=== PATIENT | female | born 1950 | race Hispanic/Latino ===

== ENCOUNTER → 2017-08-10 | Day surgery (SDC) | payer MEDICARE, BC ==
[2013-10-28 08:22] VITALS: BMI 31.6
[~2017-08-10] MED LIST: Iodixanol 320 MG/ML 200 ML BOTTLE IV ONE; Lidocaine 2% Inj (20ml) ONE; Midazolam 2 MG/2 ML VIAL ONE; Nitroglycerin 50mg in D5W 0 MG/0 ML BOTTLE IV ONE; Potassium Chloride 20 mEq ER Tab PO ONE; Sodium Chloride 0.9% 1,000 ML IV SCH
--- NOTE | 2017-08-10 08:28 | HP ---
REASON FOR ADMISSION: Chest pain, recurrent; history of coronary artery disease; history of CABG, and history of PTCA. BRIEF CLINICAL HISTORY: This is a 67-year-old female with a past medical history significant for type 2 diabetes, PTCA, CABG, post CABG PTCA x2, left main, recently seen in office on 07/31/2017. CHIEF COMPLAINT: Chest pain with minimal activity underneath the breast and goes into the left arm and shoulder, so the patient is scheduled for cardiac catheterization. PAST MEDICAL HISTORY: Significant for coronary artery disease, history of coronary artery bypass surgery on 05/30/2012, two vessels CABG, SHAH to LAD and SVG to circumflex. Over a period of time, the patient had stent to the left main and sent to the circumflex. Last cardiac catheterization on 10/16/2014 that shows mid LAD of occluded, but patent SHAH to LAD, occluded SVG to the circumflex occluded, but patent stent in the circumflex, patent stent in RCA. Medical treatment was recommended. Last catheterization dated to 10/16/2014. Previous cardiac workup as follows: Patient had a stress test on 07/14/2017 that shows normal ejection fraction of 50-60%; echo, ejection fraction 65%, trace MR, trace TR, mild to moderate TR. RV systolic pressure 55%. Most recent catheterization on 10/16/2014 shows patent SHAH occluded, SVG to circumflex, patent stent in circumflex, patent RCA. CURRENT MEDICATION: The patient is taking hydrochlorothiazide, metformin, Januvia, simvastatin, Ranexa, Singulair, Gabapentin, aspirin, amiodarone, and acetaminophen. REVIEW OF SYSTEMS: As per HPI. ALLERGIES: ALLERGY TO NIACIN. PHYSICAL EXAMINATION: VITAL SIGNS: As follows: Height of the patient is 5 feet , weight of the patient 176 pounds, body mass index is 31 kg/m2. Blood pressure 145/75. HEENT: PERRLA. Extraocular muscles intact. NECK: Supple. No carotid bruits or thyromegaly. CHEST: Clear to auscultation. HEART: S1 and S2 and regular. ABDOMEN: Soft. EXTREMITIES: Clubbing and cyanosis are negative. LABORATORY DATA: Blood workup pending. IMPRESSION: Unstable angina, diabetes, hypertension, hyperlipidemia, status post stimulator in the back, history of coronary artery bypass surgery in 2011, history of multiple stents in the past, unstable angina. RECOMMENDATIONS: We will load with Plavix and aspirin. Further recommendation after the cardiac catheterization. We will follow with you. Thank you for providing us the opportunity in taking care of the patient, Elaine Segovia. Fozia Sykes MD
[2017-08-10 09:05] LABS: BASO # 0.02 K/mm3 (0.0-2.0); BASO % 0.3 % (0.0-3.0); EOS # 0.1 (0.0-0.7); EOS % 1.8 % (1.5-5.0); GRAN # 5.12 (1.4-6.5); GRAN % 67.1 % (50.0-68.0); HEMATOCRIT 37.2 % (36.0-48.0); LYMPH # 1.7 (1.2-3.4); LYMPH % 22.8 % (22.0-35.0); MEAN CELL VOLUME 89.9 fl (80.0-105.0); MEAN CORPUSCULAR HEMOGLOBIN 30.4 pg (25.0-35.0); MEAN CORPUSCULAR HGB CONC 33.9 g/dl (31.0-37.0); MEAN PLATELET VOLUME 11.2 fl (7.0-11.0); MONO # 0.6 (0.1-0.6); RED CELL DISTRIBUTION WIDTH 13.4 % (11.5-14.5); WHITE BLOOD COUNT 7.6 10^3/ul (4.5-11.0)
[2017-08-10 09:09] LABS: BLOOD UREA NITROGEN 8 mg/dL (7-21); CALCIUM 9.7 mg/dL (8.4-10.5); CARBON DIOXIDE 33 mmol/L (21-33); CHLORIDE 96 mmol/L (98-107); CHOLESTEROL 178 mg/dL (130-200); GFR AFRICAN-AMERICAN > 60; GLUCOSE,RANDOM 153 mg/dL (70-110); POTASSIUM 3.5 mmol/L (3.6-5.0); SODIUM 138 mmol/L (132-148)
[2017-08-10 09:20] VITALS: RESP 18; TEMP 98
[2017-08-10 09:46] LABS: INR 1.01 (0.93-1.08); PARTIAL THROMBOPLASTIN TIME 29.5 Seconds (23.7-30.8)
[2017-08-10 12:46] VITALS: O2SAT 97
[2017-08-10 18:06] VITALS: BP 156/88; PULSE 60
--- NOTE | 2017-08-10 21:56 | CARD ---
APPROVED REPORT Procedure(s) performed: Left Heart Catheterization SHAH Angiogram HISTORY The patient is a 67 year-old female with a history of : previous WA (> 7 days), previous CHF, diabetes mellitus with oral treatment , chronic lung disease, previous diagnostic cath, previous PCI (The PCI date was 03/13/2014), hypertension , previous CABG (The CABG date was 05/30/2012), dyslipidemia , Multiple office visits with chest oain, though stress test was normal. INDICATION The indication(s) include : unstable angina . CASE TECHNIQUE The patient was brought electively to the Cardiac Catheterization Laboratory in a fasting state and was prepped and draped in a sterile manner. The right femoral groin was infiltrated with 2% Lidocaine subcutaneous anesthesia. A 6 Fr x 11 cm Miranda sheath was inserted into the right femoral artery without difficulty. Coronary angiography was performed using coronary diagnostic catheters. The left coronary system was accessed and visualized with a Diagnostic ,6 Fr JL 4 catheter. The right coronary system was accessed and visualized with a Diagnostic ,6 Fr JR 4 catheter. The left ventricle was accessed and visualized with a 6 Fr Pigtail catheter. Left ventricular/Aortic Valve gradient assessed on pullback. Left ventriculogram was performed in PITTMAN projection. Closure device was deployed with a 6 Fr Angio-Seal without any complications. The patient tolerated the procedure well and there were no complications associated with the procedure. Vessel Analysis The patient's coronary anatomy is right dominant. The left main coronary artery is a large size vessel with diffuse calcification noted throughout this vessel and without significant stenosis. with patent stent The left main bifurcates to the left anterior descending and circumflex. The left anterior descending artery is a medium size vessel with diffuse calcification noted throughout this vessel and with significant stenosis. There is a 100% stenosis in the mid segment. The first diagonal branch is a small size vessel with diffuse calcification noted throughout this vessel and without significant stenosis. The circumflex artery is a large size vessel with diffuse calcification noted throughout this vessel and without significant stenosis. patent stent in proximal segment The first obtuse marginal branch is a large size vessel with diffuse calcification noted throughout this vessel and without significant stenosis. The right coronary artery is a large size vessel with diffuse calcification noted throughout this vessel and without significant stenosis. patent stent in proximal segment There is a 40-50% stenosis in the mid segment. The right posterior descending artery is a large size vessel with diffuse calcification noted throughout this vessel and without significant stenosis. The right posterolateral branch is a medium size vessel with diffuse calcification noted throughout this vessel and without significant stenosis. The left internal mammary artery to the mid left anterior descending artery segment . The saphenous vein graft to the mid circumflex artery segment was occluded on previous cath,not attemted to canulate this time. . Left Ventricle The left ventricle is normal in size with normal contractility. There was no cardiomyopathy. The left ventricular ejection fraction is estimated to be 55-60%. The left ventricular end diastolic pressure is 14 mmHg. There was no gradient across the aortic valve upon pullback. Conclusion Patent SHAH to LAD Patent Stents in Left main,circumflex, and RCA. preserved Lv Fx. EF-55-60%, EDP-14 mmof Hg. Recommendations Aggressive Medical TherapyCardiac Risk Reduction Program Weight Loss Reduction Program Aggressive pain management and work up for non cardiac chest pain. Cc; dr. Brooks
--- NOTE | 2017-08-11 09:44 | CARD ---
APPROVED REPORT EKG Measurement Heart [id number] [place] 198P [id number] <Conclusion> Sinus bradycardia Nonspecific ST and T wave abnormality Prolonged QT Abnormal ECG
== END | disposition home or self-care (01) ==
LOC: CATH 08:00
PROVIDERS: ATTEND Internal Medicine Cardiovascular Disease
DX: I25.110 Atherosclerotic heart disease of native coronary artery with unstable angina pectoris (principal); I50.9 Heart failure, unspecified; E11.9 Type 2 diabetes mellitus without complications; J44.9 Chronic obstructive pulmonary disease, unspecified; I10 Essential (primary) hypertension; E78.5 Hyperlipidemia, unspecified; Z95.5 Presence of coronary angioplasty implant and graft; Z95.1 Presence of aortocoronary bypass graft; Z88.8 Allergy status to other drugs, medicaments and biological substances
CPT/HCPCS: 36415; 80048; 80061; 85025; 85610; 85730; 86850; 86900; 93005; 93458; 99152; C1760; C1769; C2629; J1644; J2250; J3010; J7040 ×2